=== PATIENT | female | born 1970 | race Caucasian/White ===

== ENCOUNTER 2018-11-19 17:03 | Emergency (ER) | payer MEDICAID ==
--- NOTE | 2018-11-19 17:40 | NUR ---
CALLED FOR PT TO TRIAGE, NO ANSWER IN LOBBY OR OUTSIDE OF ER ENTRANCE. PT LWBS AT 1740.
--- NOTE | 2018-11-19 17:40 | NUR ---
Lexus hernández in EDM - 11/19/18 at 1824 by FRANCINE CALLED FOR PT TO TRIAGE, NO ANSWER IN LOBBY OR OUTSIDE OF ER ENTRANCE. PT LWBS AT [id number].
--- NOTE | 2018-11-19 17:40 | NUR ---
Lexus hernández in EDM - 11/19/18 at 1825 by FRANCINE CALLED FOR PT TO TRIAGE FOR SECOND TIME, NO ANSWER IN LOBBY OR OUTSIDE OF ER ENTRANCE. PT LWBS AT [phone].
--- NOTE | 2018-11-19 17:52 | NUR ---
CALLED FOR PT TO TRIAGE FOR SECOND TIME, NO ANSWER IN LOBBY OR OUTSIDE OF ER ENTRANCE. PT LWBS AT 1930.
--- NOTE | 2018-11-19 18:00 | NUR ---
CALLED FOR PT TO TRIAGE FOR THIRD TIME, NO ANSWER IN LOBBY OR OUTSIDE OF ER ENTRANCE. PT LWBS AT [id number].
== END 2018-11-19 17:40 | disposition left against medical advice (07) ==
LOC: MED 17:03
DX: Z53.21 Procedure and treatment not carried out due to patient leaving prior to being seen by health care provider (principal)